=== PATIENT | male | born 1970 | race Two or more races ===

== ENCOUNTER → 2023-05-12 08:46 | Outpatient (AMB) | payer OTHER, SELFPAY ==
--- NOTE | 2023-05-12 10:16 | MHC.OFFWIV ---
Intake Vital Signs 05/12/23 10:17 Height 5 ft 7 in Weight 179 lb BMI 28.0 BP 130/74 Blood Pressure Location Lt brachial Position Sitting Pulse 76 Pulse Source Pulse Oximeter Temp 98.2 F Temp Source Temporal Artery Scan Pulse Oximetry (%) 98 Intake Visit Reasons: [employer]/ fell/cut to both knees and left thumb Intake Note: pt is here for c.o both knee wounds and left thumb pain concern of infection due to fall Patient Tobacco Use Status: Never used Tobacco Allergies No Known Allergies Allergy (Verified 05/12/23 10:18) Do you need a note to return to daycare/school/sports/work: Yes HPI HPI Comments History of Present Illness Details 53-year-old male who presents for injuries after a fall. Patient has a fell on Tuesday scraping his knees in his hand injuring his wrist. He cleaned himself up with antibiotic ointment as well as peroxide. He presents today for concern of possible infection as well as pain and swelling of his wrist and thumb. [facility] Medical History (Updated 05/12/23 @ 10:36 by CARISSA Romero) Wrist pain Social History Patient Tobacco Use Status: Never used Tobacco Review of Systems Const All systems reviewed & are unremarkable except as noted in HPI and below Denies chills and Denies fever(s) Musc Reports arthralgias and Reports joint swelling Physical Exam Vital Signs: Last Vital Signs Temp 98.2 F 05/12/23 10:17 Pulse 76 05/12/23 10:17 BP 130/74 05/12/23 10:17 Pulse Ox 98 05/12/23 10:17 BMI result Body Mass Index 28.0 Const General: alert Skin Other: Scattered abrasions with healing granulation tissue on the knees bilaterally. No overlying erythema warmth scattered abrasions on the dorsal aspect of the left thumb with granulation tissue no erythema or warmth Extrem Other: swelling of the left thumb tenderness to palpation over the snuffbox inability to utilize opposition tenderness to palpation on the dorsum left wrist Assessment & Plan Assessment & Plan (1) Wrist pain: Code(s): M25.539 - Pain in unspecified wrist Plan findings concerning for scaphoid fracture verses on the metacarpal injury versus distal radius and Ulnar fracture her x-rays are monitor petition show no acute fracture however given the level of tenderness in the snuffbox region will splint to the thumb spica. Will recommend repeat x-rays On Tuesday Discharge instructions, follow up and treatment are discussed with patient in my usual fashion. Alternatives in treatment are also discussed. The patient will return for worsening symptoms or as needed. Advised that any labs/imaging ordered will be followed up on and contact made if further treatment needed. Counseled that patient's condition may require further evaluation and/or treatment. Symptoms of concern for worsening disorder discussed in detail in my customary manner. Patient does verbalize understanding of the plan, there are no apparent barriers to communication. The patient is given the opportunity to ask questions and have them answered to his/her satisfaction Orders: Orders XR hand wrist LT Today M25.539 - Pain in unspecified wrist, M79.89 - Other specified soft tissue disorders Coding Level of Care Code Est Pt Level 4 (73058) Diagnoses Wrist pain M25.539
[2023-05-12 10:17] VITALS: BP 130/74; PULSE 76; TEMP 36.8; O2SAT 98; BMI 28.0
== END ==
PROVIDERS: PCP Internal Medicine; Visit Provider Physician Assistant
DX: M25.539 Pain in unspecified wrist (principal)
CPT/HCPCS: 99214

== ENCOUNTER 2023-05-12 10:40 | Outpatient (REF) | payer OTHER, SELFPAY ==
--- NOTE | ~2023-05-12 | XR_ITS ---
EXAMINATION: XR WRIST, LEFT XR HAND, LEFT CLINICAL INFORMATION: Wrist pain COMPARISON: None available. TECHNIQUE: PA, lateral, and oblique views of the left wrist and the left hand FINDINGS: The bones and soft tissues are normal. No fracture. Alignment is anatomic. Joint spaces are maintained. No erosions or soft tissue calcifications. XR/XR hand wrist LT IMPRESSION: Normal left hand and wrist.
== END 2023-05-12 10:41 | disposition home or self-care (01) ==
LOC: HO.HMGCX 10:40
PROVIDERS: PCP Internal Medicine; Visit Provider Physician Assistant
DX: M25.532 Pain in left wrist (principal); M79.89 Other specified soft tissue disorders
CPT/HCPCS: 73110; 73130

== ENCOUNTER 2023-05-17 08:09 | Outpatient (AMB) | payer OTHER, SELFPAY ==
[2023-05-17 08:12] VITALS: BP 126/74; PULSE 77; TEMP 36.7; O2SAT 99; BMI 28.0
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
== END 2023-05-17 08:57 | disposition home or self-care (01) ==
PROVIDERS: PCP Internal Medicine; Visit Provider Internal Medicine
DX: M25.531 Pain in right wrist (principal)
CPT/HCPCS: 99213

== ENCOUNTER 2023-09-13 08:54 | Outpatient (AMB) | payer OTHER, SELFPAY ==
--- NOTE | 2023-09-13 09:40 | AM.OFFWIN_ITS ---
Intake Vital Signs 09/13/23 09:43 Height 5 ft 7 in Weight 187 lb 6 oz BMI 29.3 BP 126/72 Blood Pressure Location Lt brachial Position Sitting Pulse 63 Pulse Source Pulse Oximeter Temp 97.8 F Temp Source Oral Pulse Oximetry (%) 98 Oxygen Delivery Method Room Air Intake Visit Reasons: EP LT ear pain, Nausea [phone] Intake Note: Patient is herewith left ear pain, causing nausea, and irritating. Patient Tobacco Use Status: Never used Tobacco Allergies No Known Allergies Allergy (Verified 09/13/23 09:41) Do you need a note to return to daycare/school/sports/work: Yes HPI HPI Comments History of Present Illness Details Patient is a 53-year-old male in today for a sick visit. He has no significant past medical history. He states that for the past couple days he has developed symptoms of left ear pain, sensitivity to sound, low-grade fever. He has tried some [id number] medicine with little relief. Has no history of this happening before. Denies any trauma to the area. Denies diminished hearing. He works at a very busy [employer] and is around many sick people. [facility], [facility] Medical History (Updated 09/13/23 @ 10:31 by YULI Adames) Wrist pain Social History Patient Tobacco Use Status: Never used Tobacco Review of Systems Const Details: Constitutional : No Weight loss, No Fever, No Chills, No Fatigue, No Malaise ENT/Mouth : No sore throat, Admits left ear pain. Eyes: No Eye Pain, No Swelling, No Redness Cardiovascular : No Chest Pain, No SOB, No Dyspnea on Exertion, No Orthopnea, No Edema, No Palpitations Respiratory : No Cough, No Sputum, No Wheezing Gastrointestinal : No Nausea, No Vomiting, No Diarrhea, No Constipation, No abdominal Pain, No Hematochezia, No Melena Neuro : No Weakness, No Numbness, No Dizziness, No Headache Psych : No Anxiety/Panic, No Depression Heme/Lymph: No Bruising, No Bleeding,No Lymphadenopathy All other systems reviewed and are negative Physical Exam Vital Signs: Last Vital Signs Temp 97.8 F 09/13/23 09:43 Pulse 63 09/13/23 09:43 BP 126/72 09/13/23 09:43 Pulse Ox 98 09/13/23 09:43 Oxygen Delivery Method Room Air 09/13/23 09:43 BMI result Body Mass Index 29.3 Vital signs reviewed stable Const Other: Appearance: Alert.? Oriented X3.? No acute distress.? Head: Normocephalic, atraumatic, no step-offs or deformities Eyes: Pupils equal, round and reactive to light.? ENT: Pharynx normal. Right TM intact, pearly raines. Left TM erythema with effusion. No mastoid tenderness. ? Neck: Normal inspection.? Neck supple.?Normal ROM. CVS: Normal heart rate and rhythm.? Pulses normal.? Respiratory: No respiratory distress.? Breath sounds normal.? Neuro: Oriented X 3.? No motor deficit.? No sensory deficit. CN 2-12 intact Assessment & Plan Assessment & Plan (1) Otitis media of left ear: Comment: Patient will be given Augmentin to be taken as directed as well as prednisone. He has been educated on signs of worsening symptoms of when to return to the walk-in clinic or when to present to the emergency room. Code(s): H66.92 - Otitis media, unspecified, left ear Qualifiers: Otitis media type: unspecified Qualified Code(s): H66.92 - Otitis media, unspecified, left ear Plan: Take your medications as prescribed. If you were prescribed antibiotics today, it is important that you take your medication to their entirety, do not skip any doses, do not finish them early. Follow-up with your primary care provider this week. Return to the emergency department with new or worsening symptoms. Such as fevers, chills, chest pain, shortness of breath, nausea, vomiting, dizziness, headache, vision changes, lethargy In case of emergency call 911 Plan Follow-up with PCP Medications: New prednisone 20 mg PO BID 10 tabs 0RF amoxicillin-pot clavulanate 875-125 mg 1 tab PO Q12H 20 tabs 0RF Coding Level of Care Code Est Pt Level 3 (23476) Diagnoses Left otitis media, unspecified otitis media type H66.92 Otitis media type: unspecified Time Spent (min) 25
[2023-09-13 09:43] VITALS: BP 126/72; PULSE 63; TEMP 36.6; O2SAT 98; BMI 29.3
== END 2023-09-13 11:02 | disposition home or self-care (01) ==
PROVIDERS: PCP Internal Medicine; Visit Provider Nurse Practitioner Primary Care
DX: H66.92 Otitis media, unspecified, left ear (principal)
CPT/HCPCS: 99213